=== PATIENT | female | born 1980 | race Caucasian/White ===

== ENCOUNTER 2020-07-12 17:05 | Emergency (ER) | payer OTHER, SELFPAY ==
[2020-07-12 17:06] VITALS: BP 121/89; PULSE 76; RESP 19; TEMP 36.9; O2SAT 99; BMI 49.9
--- NOTE | 2020-07-12 17:25 | HMH.EDUTC ---
[facility] [place] Clinical Impression: Encounter for laboratory testing for COVID-19 virus, Nasal congestion Sinusitis Qualifiers: Sinusitis location: unspecified location Chronicity: unspecified Qualified Code(s): J32.9 - Chronic sinusitis, unspecified Disposition: Home, Self-Care Condition on Discharge: Good Instructions: Sinusitis, DI for Sinusitis, DI for COVID-19 (Suspected or Confirmed ), Coronavirus Disease 2019, Preventing the Spread of Coronavirus Discharge Instructions Additional Instructions: *Monitor Temp, Over the counter Motrin or Tylenol as directed/as needed Tylenol every 4 hours and Motrin every 6 hours (as long as your family doctor has told you that you can take it) for fever or pain. and straight to ER if unable to lower temp less than 101.0 after medication given *Warm salt water gargles may help to soothe the throat *Throat Lozenges *Warm fluids like tea with honey may help to soothe the throat *Sleep elevated *Humidifier/Vaporizer Follow up IMMEDIATELY for new or worsening symptoms or no Noticeable improvement over the next 48-72 hours. 911 for difficulty breathing or swallowing You were tested for today for COVID19 your test result should be back in the next 24-48 hours, you may call to the [facility] to see if your test results are back in the next 48 hours [phone] [facility] hours are 9am-9pm You was given a handout with instructions for Self Quarantine and Self isolation for while you wait on test results and what to do if they are positive If you are positive the Health Dept will be contacting you also Prescriptions: Azithromycin [Z-Brian 250mg Tab] 250 mg PO DIRECTED #6 tab Transmission Status: Pending to [facility] Referrals: Madeleine Tan APRN [Primary Care Provider] - As needed Time of Disposition: 17:32 Medical Decision Making - Natan Inquiry Pt receiving controlled substance: No Natan was queried for this patient: No Vital Signs: 07/12/20 17:06 Temperature 97.9 F Temperature Source Oral Pulse Rate [Right] 0 L Respiratory Rate 16 Blood Pressure [Right Arm] 00/00 L 02 Sat by Pulse Oximetry 99 Orders (Tests/Meds): ORDERS Category Date Time Status Covid-19 Nasal PCR Sendout P&C Stat Lab 07/12/20 17:16 Ordered [facility] - General Stated complaint: Covid 19 test Time Seen by Provider: 07/12/20 17:25 Description of Symptoms (Recalled from Triage Doc. by RN): pt request COVID test pt c/o sinus pressure HEENT Symptoms (Recalled from RN notes): Yes Resp Symptoms (Recalled from RN notes): No Skin Symptoms (Recalled from RN notes): No MS Symptoms (Recalled from RN notes): No Functional Status (Recalled from RN notes): wnl - History of Present Illness Provider Complaint: Patient state that her is currently positive for COVID State that she has been having sinus congestion and pressure that has got worse over the last few days States that she was concerned that she may have COVID states that she come in today to get checked - Related Data Previous Rx's Medication Instructions Recorded azithromycin 250 mg tablet See Rx Instructions PO .COMPLEX #6 07/04/19 tab benzonatate 100 mg capsule 100 mg PO TID PRN #14 cap 07/04/19 prednisone 20 mg tablet 20 mg PO BID 5 Days #10 tab 07/04/19 Azithromycin [Z-Brian 250mg Tab] 250 mg PO DIRECTED #6 tab 07/12/20 Allergies Allergy/AdvReac Type Severity Reaction Status Date / Time Sulfa (Sulfonamide Allergy Verified 07/12/20 17:19 Antibiotics) - Worker's Comp Is this a Worker's Comp case?: No Is this an [facility] Worker's Comp?: No Is this a [facility] Worker's Comp?: No [facility] History - Hepatitis A Screen Drug use history?: No High risk sexual behaviors?: No History of sexually transmitted infection?: No Currently employed?: No Childcare worker?: No Do you have indoor plumbing?: Yes Do you have electricity?: Yes Attestation statement:: This patient has been screened for Hepatitis A risk
[2020-07-12 17:33] VITALS: BP 121/89; PULSE 76; RESP 19; TEMP 36.9; O2SAT 99
[2020-07-14 08:50] LABS: Covid-19 Nasal PCR Sendout P&C POSITIVE
--- NOTE | 2020-07-14 09:30 | PC.NURSE ---
patient notified of positive covid test
== END 2020-07-12 17:36 | disposition home or self-care (01) ==
PROVIDERS: Emergency Provider Nurse Practitioner; PCP Nurse Practitioner
DX: U07.1 COVID-19 (principal); J32.9 Chronic sinusitis, unspecified; J45.909 Unspecified asthma, uncomplicated
CPT/HCPCS: 99202; G0463; U0004

== ENCOUNTER → 2022-06-20 10:00 | Outpatient (CLI) | payer OTHER, SELFPAY ==
[2022-06-20 18:14] LABS: Adenovirus,PCR Not Detected (NotDetected); Bordetella Pertussis Not Detected (NotDetected); Chlamydophila Pneumoniae, PCR Not Detected (NotDetected); Coronavirus 19, PCR Not Detected (NotDetected); Coronavirus 229E Not Detected (NotDetected); Coronavirus NL63 Not Detected (NotDetected); Coronavirus OC43 Not Detected (NotDetected); Coronovirus HKU1,PCR Not Detected (NotDetected); Human Metapneumovirus Not Detected (NotDetected); Influenza A, PCR Not Detected (NotDetected); Influenza AH1, 2009 Not Detected (NotDetected); Influenza AH1, PCR Not Detected (NotDetected); Influenza AH3,PCR Not Detected (NotDetected); Influenza B, PCR Not Detected (NotDetected); Mycoplasma Pneumoniae, PCR Not Detected (NotDetected); Parainfluenza 1, PCR Not Detected (NotDetected); Parainfluenza 2, PCR Not Detected (NotDetected); Parainfluenza 3, PCR Not Detected (NotDetected); Parainfluenza 4, PCR Not Detected (NotDetected); Respiratory Syncytial Virus Not Detected (NotDetected); Rhinovirus/Enterovirus Not Detected (NotDetected)
== END ==
LOC: LAB.DROPOF 06-21 09:25
PROVIDERS: PCP Nurse Practitioner; Visit Provider Nurse Practitioner
DX: Z20.822 Contact with and (suspected) exposure to COVID-19 (principal); J32.9 Chronic sinusitis, unspecified; R09.81 Nasal congestion
CPT/HCPCS: 87581; 87632; 87798; C9803; U0003; U0005

== ENCOUNTER → 2022-11-18 13:52 | Outpatient (CLI) | payer OTHER, SELFPAY ==
[2022-11-18 19:09] LABS: Microalbumin/Creatinine Ratio 11.4
[2022-11-18 19:11] LABS: Basophils % 0.4 % (0.1-2.0); Eosinophils # 0.2 K/mm3 (0.0-0.4); Eosinophils % 2.9 % (0.1-12.0); Hematocrit 40.2 % (37.0-47.0); Lymphocytes # 1.8 K/mm3 (0.7-4.5); Lymphocytes % 25.4 % (10-50); Mean Corpuscular HGB Conc 32.3 g/dL (31.8-35.4); Mean Corpuscular Hemoglobin 28.4 pg (27.0-31.2); Mean Corpuscular Volume 88.1 fl (81-99); Mean Platelet Volume 10.1 fl (7.4-10.4); Monocytes # 0.4 K/mm3 (0.1-1.0); Monocytes % 5.9 % (1.7-9.3); Neutrophils # 4.5 K/mm3 (1.8-7.8); Neutrophils % 65.5 % (37.0-80.0); Platelet Count 244 K/mm3 (142-424); Red Blood Count 4.56 M/mm3 (4.20-5.40); Red Cell Distribution Width 14.1 % (11.5-17.5); White Blood Count 6.9 K/mm3 (4.8-10.8)
[2022-11-18 19:12] LABS: Creatinine,Urine Random 144 mg/dL (Not Estab.)
[2022-11-18 19:24] LABS: Alanine Aminotransferase 25 U/L (12-78); Albumin Level 3.8 g/dl (3.5-5.0); Albumin/Globulin Ratio 1.4 (1.1-1.8); Alkaline Phosphatase 62 U/L (38-126); Anion Gap 18.3 mEq/L (5-15); Aspartate Amino Transferase 30 U/L (14-36); Bilirubin,Total 0.3 mg/dl (0.2-1.3); Blood Urea Nitrogen 16 mg/dl (7-17); Carbon Dioxide 27 mmol/L (22.0-30.0); Chloride 99 mmol/L (98-107); Chol/HDL Ratio 3.8 (1-3.5); Cholesterol 170 mg/dl (140-200); Estimated Glomerular Filt Rate 110 ml/min (>60); GFR (African American) 133 ML/MIN (>60); Globulin 2.8 g/dL (1.3-3.2); Glucose 115 mg/dl (74-100); HDL Cholesterol 45 mg/dl (40-60); Potassium 4.3 mmoL/L (3.5-5.1); Sodium 140 mmol/L (136-145); Total Protein,Serum 6.6 g/dl (6.3-8.2); Triglycerides 119 mg/dl (30-150); VLDL Cholesterol 24 mg/dL (0-40)
[2022-11-18 19:35] LABS: Direct LDL Cholesterol 113.86 mg/dL (100-129)
[2022-11-18 19:38] LABS: Hemoglobin A1C 6.2 % (4.0-6.0)
[2022-11-18 19:42] LABS: 25-OH Vitamin D, Total 18.9 ng/mL (30-100)
[2022-11-18 19:54] LABS: Thyroid Stimulating Hormone 1.83 uIU/mL (0.465-4.68)
[2022-11-18 20:12] LABS: Vitamin B12 208 pg/mL (239-931)
== END ==
PROVIDERS: PCP Nurse Practitioner; Visit Provider Nurse Practitioner
DX: I10 Essential (primary) hypertension (principal); E53.8 Deficiency of other specified B group vitamins; E55.9 Vitamin D deficiency, unspecified; E78.5 Hyperlipidemia, unspecified; R60.0 Localized edema; R73.01 Impaired fasting glucose
CPT/HCPCS: 80053; 80061; 82043; 82306; 82570; 82607; 83036; 84443; 85025

== ENCOUNTER → 2022-12-18 10:50 | Outpatient (CLI) | payer OTHER, SELFPAY ==
[2022-12-18 19:48] LABS: Chloride 101 mmol/L (98-107); Potassium 5.2 mmoL/L (3.5-5.1); Sodium 138 mmol/L (136-145)
[2022-12-18 19:51] LABS: Anion Gap 17.2 mEq/L (5-15); Blood Urea Nitrogen 20 mg/dl (7-17); Calcium 9.3 mg/dl (8.4-10.2); Carbon Dioxide 25 mmol/L (22.0-30.0); Estimated Glomerular Filt Rate 69 ml/min (>60); GFR (African American) 83 ML/MIN (>60); Glucose 86 mg/dl (74-100)
== END ==
PROVIDERS: PCP Nurse Practitioner; Visit Provider Nurse Practitioner
DX: R73.01 Impaired fasting glucose (principal)
CPT/HCPCS: 80048

== ENCOUNTER → 2023-02-12 21:47 | Outpatient (CLI) | payer BC, SELFPAY ==
[2023-02-12 19:05] LABS: Hemoglobin A1C 5.8 % (4.0-6.0)
[2023-02-12 19:06] LABS: Alanine Aminotransferase 20 U/L (12-78); Albumin Level 3.8 g/dl (3.5-5.0); Albumin/Globulin Ratio 1.3 (1.1-1.8); Alkaline Phosphatase 57 U/L (38-126); Anion Gap 11.2 mEq/L (5-15); Aspartate Amino Transferase 22 U/L (14-36); Bilirubin,Total 0.3 mg/dl (0.2-1.3); Blood Urea Nitrogen 13 mg/dl (7-17); Calcium 8.8 mg/dl (8.4-10.2); Carbon Dioxide 26 mmol/L (22.0-30.0); Chloride 105 mmol/L (98-107); Chol/HDL Ratio 4.4 (1-3.5); Cholesterol 173 mg/dl (140-200); Estimated Glomerular Filt Rate 79 ml/min (>60); GFR (African American) 95 ML/MIN (>60); Globulin 2.9 g/dL (1.3-3.2); Glucose 87 mg/dl (74-100); HDL Cholesterol 39 mg/dl (40-60); Potassium 4.2 mmoL/L (3.5-5.1); Sodium 138 mmol/L (136-145); Total Protein,Serum 6.7 g/dl (6.3-8.2); Triglycerides 70 mg/dl (30-150); VLDL Cholesterol 14 mg/dL (0-40)
[2023-02-12 19:17] LABS: Direct LDL Cholesterol 108.59 mg/dL (100-129)
[2023-02-12 19:23] LABS: 25-OH Vitamin D, Total 29.1 ng/mL (30-100)
[2023-02-12 19:54] LABS: Vitamin B12 798 pg/mL (239-931)
== END ==
PROVIDERS: PCP Nurse Practitioner; Visit Provider Nurse Practitioner
DX: I10 Essential (primary) hypertension (principal); R73.01 Impaired fasting glucose; E78.5 Hyperlipidemia, unspecified; E55.9 Vitamin D deficiency, unspecified; E53.8 Deficiency of other specified B group vitamins; E66.9 Obesity, unspecified; Z68.42 Body mass index [BMI] 45.0-49.9, adult
CPT/HCPCS: 80053; 80061; 82306; 82607; 83036

== ENCOUNTER → 2023-05-28 08:32 | Outpatient (CLI) | payer BC, SELFPAY ==
[2023-05-28 19:34] LABS: Hemoglobin A1C 5.3 % (4.0-6.0)
[2023-05-28 19:41] LABS: 25-OH Vitamin D, Total 30.7 ng/mL (30-100)
[2023-05-28 20:14] LABS: Vitamin B12 369 pg/mL (239-931)
[2023-05-28 20:30] LABS: Chloride 103 mmol/L (98-107); Potassium 3.8 mmoL/L (3.5-5.1); Sodium 137 mmol/L (136-145)
[2023-05-28 20:32] LABS: Blood Urea Nitrogen 12 mg/dl (7-17); Estimated Glomerular Filt Rate 79 ml/min (>60); GFR (African American) 95 ML/MIN (>60)
[2023-05-28 20:33] LABS: Alanine Aminotransferase 68 U/L (12-78); Albumin Level 3.8 g/dl (3.5-5.0); Albumin/Globulin Ratio 1.4 (1.1-1.8); Alkaline Phosphatase 73 U/L (38-126); Anion Gap 10.8 mEq/L (5-15); Aspartate Amino Transferase 52 U/L (14-36); Bilirubin,Total 0.3 mg/dl (0.2-1.3); Calcium 8.8 mg/dl (8.4-10.2); Carbon Dioxide 27 mmol/L (22.0-30.0); Globulin 2.8 g/dL (1.3-3.2); Glucose 102 mg/dl (74-100); Total Protein,Serum 6.6 g/dl (6.3-8.2)
== END ==
PROVIDERS: PCP Nurse Practitioner; Visit Provider Nurse Practitioner
DX: I10 Essential (primary) hypertension (principal); E53.8 Deficiency of other specified B group vitamins; E55.9 Vitamin D deficiency, unspecified; E66.9 Obesity, unspecified; R73.01 Impaired fasting glucose; Z68.42 Body mass index [BMI] 45.0-49.9, adult
CPT/HCPCS: 80053; 82306; 82607; 83036

== ENCOUNTER 2024-07-08 18:56 | Outpatient (CLI) | payer BC, SELFPAY | END 2024-07-08 23:59 | disposition home or self-care (01) | LOC: LAB.DROPOF 18:57 | PROVIDERS: PCP Nurse Practitioner; Visit Provider Nurse Practitioner | DX: Z02.9 Encounter for administrative examinations, unspecified (principal) ==

== ENCOUNTER 2024-07-08 19:27 | Outpatient (CLI) | payer BC, SELFPAY ==
[2024-07-08 19:52] LABS: Basophils % 0.4 % (0.1-2.0); Eosinophils # 0.2 K/mm3 (0.0-0.4); Eosinophils % 2.7 % (0.1-12.0); Hematocrit 40.3 % (37.0-47.0); Hemoglobin 12.5 g/dL (12.2-16.2); Lymphocytes # 1.8 K/mm3 (0.7-4.5); Lymphocytes % 22.4 % (10-50); Mean Corpuscular Hemoglobin 28.5 pg (27.0-31.2); Mean Platelet Volume 11.2 fl (7.4-10.4); Monocytes # 0.6 K/mm3 (0.1-1.0); Monocytes % 6.9 % (1.7-9.3); Neutrophils # 5.4 K/mm3 (1.8-7.8); Neutrophils % 67.2 % (37.0-80.0); Platelet Count 255 K/mm3 (142-424); Red Blood Count 4.38 M/mm3 (4.20-5.40); Red Cell Distribution Width 13.2 % (11.5-17.5); White Blood Count 8.1 K/mm3 (4.8-10.8)
[2024-07-08 20:19] LABS: Creatinine,Urine Random 79 mg/dL (Not Estab.)
[2024-07-08 20:25] LABS: Hemoglobin A1C 6.1 % (4.0-6.0); Microalbumin/Creatinine Ratio 17.5
[2024-07-08 20:51] LABS: Alanine Aminotransferase 30 U/L (12-78); Albumin Level 3.6 g/dl (3.5-5.0); Albumin/Globulin Ratio 1.4 (1.1-1.8); Alkaline Phosphatase 72 U/L (38-126); Anion Gap 10.3 mEq/L (5-15); Aspartate Amino Transferase 34 U/L (14-36); Bilirubin,Total 0.1 mg/dl (0.2-1.3); Blood Urea Nitrogen 21 mg/dl (7-17); Calcium 9.2 mg/dl (8.4-10.2); Carbon Dioxide 25 mmol/L (22.0-30.0); Chloride 104 mmol/L (98-107); Cholesterol 194 mg/dl (140-200); Estimated Glomerular Filt Rate 78 ml/min (>60); GFR (African American) 95 ML/MIN (>60); Globulin 2.5 g/dL (1.3-3.2); Glucose 112 mg/dl (74-100); HDL Cholesterol 49 mg/dl (40-60); Potassium 4.3 mmoL/L (3.5-5.1); Sodium 135 mmol/L (136-145); Total Protein,Serum 6.1 g/dl (6.3-8.2); Triglycerides 131 mg/dl (30-150); VLDL Cholesterol 26 mg/dL (0-40)
[2024-07-08 21:02] LABS: Direct LDL Cholesterol 135.93 mg/dL (100-129)
[2024-07-08 21:06] LABS: 25-OH Vitamin D, Total 24.1 ng/mL (30-100)
[2024-07-08 21:20] LABS: Thyroid Stimulating Hormone 2.84 uIU/mL (0.465-4.68)
[2024-07-08 21:39] LABS: Vitamin B12 265 pg/mL (239-931)
[2024-07-08 21:45] LABS: HIV Combo NEGATIVE (Negative)
[2024-07-08 21:53] LABS: Hepatitis C Ab Qual. W/ RFX NEGATIVE (Negative)
== END 2024-07-08 23:59 | disposition home or self-care (01) ==
LOC: LAB 19:30
PROVIDERS: PCP Nurse Practitioner; Visit Provider Nurse Practitioner
DX: I10 Essential (primary) hypertension (principal); R73.01 Impaired fasting glucose; E78.5 Hyperlipidemia, unspecified; E53.8 Deficiency of other specified B group vitamins; E55.9 Vitamin D deficiency, unspecified; E66.9 Obesity, unspecified; Z11.59 Encounter for screening for other viral diseases
CPT/HCPCS: 80053; 80061; 82043; 82306; 82570; 82607; 83036; 84443; 85025; 86803; 87389

== ENCOUNTER 2024-12-06 11:29 | Outpatient (CLI) | payer BC, SELFPAY ==
[2024-12-06 19:20] LABS: Albumin Level 3.8 g/dl (3.5-5.0); Albumin/Globulin Ratio 1.4 (1.1-1.8); Carbon Dioxide 26 mmol/L (22.0-30.0); Globulin 2.8 g/dL (1.3-3.2); Hemoglobin A1C 5.3 % (4.0-6.0); Total Protein,Serum 6.6 g/dl (6.3-8.2)
[2024-12-06 19:52] LABS: Thyroid Stimulating Hormone 1.69 uIU/mL (0.465-4.68)
[2024-12-06 20:05] LABS: Alanine Aminotransferase 19 U/L (12-78); Alkaline Phosphatase 64 U/L (38-126); Anion Gap 8.6 mEq/L (5-15); Aspartate Amino Transferase 25 U/L (14-36); Bilirubin,Total 0.5 mg/dl (0.2-1.3); Calcium 9.2 mg/dl (8.4-10.2); Chloride 106 mmol/L (98-107); Chol/HDL Ratio 4.3 (1-3.5); Cholesterol 202 mg/dl (140-200); Glucose 97 mg/dl (74-100); HDL Cholesterol 47 mg/dl (40-60); Potassium 4.6 mmoL/L (3.5-5.1); Sodium 136 mmol/L (136-145); Triglycerides 76 mg/dl (30-150); VLDL Cholesterol 15 mg/dL (0-40)
[2024-12-06 20:16] LABS: Direct LDL Cholesterol 129.54 mg/dL (100-129)
[2024-12-06 20:28] LABS: Blood Urea Nitrogen 14 mg/dl (7-17); Estimated Glomerular Filt Rate 91 ml/min (>60); GFR (African American) 110 ML/MIN (>60)
--- OUTSIDE RECORDS SUMMARY | 2024-12-07 15:24 | XMS_ITS | Clinical Summary ---
Author Organization [facility] Address [address] [place] [address] Care Team Providers Care Ticket Maker Name Role Phone None, None Primary Care Provider Heidi Mcdaniels MD Unavailable [phone] Allergies Active Allergy Reactions Criticality Noted Date Comments Sulfa (Sulfonamide Antibiotics) 08/28 Medications Vit-Iron Fumarate-FA 27-1 mg PO Tab Take 1 Tab by mouth daily. Active oxycodone-acetam inophen (PERCOCET) 5-325 mg PO per tablet Take 1 Tab by mouth every 4 hours as needed for Pain. 30 Tab 0 09/13/2011 Active norethindrone (MICRONOR) 0.35 mg PO Tab Take 1 Tab by mouth daily. Start in 3 weeks 28 Tab 12 09/13/2011 Active Active Problems Problem Noted Date Diagnosed Date H/O: section 09/10/2011 state, incidental 09/10/2011 Immunizations Immunization Administration Dates Next Due Influenza 09/10/2011 Tdap 09/11/2011 Social History Tobacco Use Types Packs/Day Years Used Date Smoking Tobacco: Never Alcohol Use Standard Drinks/Week Comments No 0 (1 standard drink = 0.6 oz pur e alcohol) Comments Unknown Sex and Gender Information Value Date Recorded Sex Assigned at Not on file Legal Sex Female 7:15 PM EST Gender Identity Not on file Sexual Orientation Not on file Last Filed Vital Signs Vital Sign Reading Time Taken Comments Blood Pressure 124/82 09/13/2011 9:00 AM EDT Pulse 67 09/13/2011 9:00 AM EDT Temperature 36.3 C (97.3 F) 09/13/2011 9:00 AM EDT Respiratory Rate 20 09/13/2011 9:00 AM EDT Oxygen Saturation 97% 09/12/2011 5:00 PM EDT Inhaled Oxygen Concentration - - Weight 120.2 kg (265 lb) 09/10/2011 7:22 AM EDT Height 165.1 cm (5' 5 ) 09/10/2011 7:22 AM EDT Body Mass Index 44.1 09/10/2011 7:22 AM EDT Plan of Treatment Not on file Care Teams Ticket Maker Relationship Specialty Start Date End Date None, None [address] [place] [address] PCP - General 09/09/11 Heidi Ramirez MD [address] [facility] [address] [place], [place] [address] Covering Provider Obstetrics & Gynecology 07/07/22
--- OUTSIDE RECORDS SUMMARY | 2024-12-07 15:24 | XMS_ITS | Clinical Summary ---
Author Organization [facility] Address [address] [place] [address] Phone Care Team Providers Care Content Creation Manager Name Role Phone Unavailable Primary Care Provider Unavailabl e Allergies Active Allergy Reactions Criticality Noted Date Comments Sulfa (Sulfonamide Antibiotics) 01/29 Medications lisinopriL-hydro chlorothiazide (PRINZIDE;ZESTOR ETIC) 10-12.5 mg Oral Tablet Take 1 Tablet by mouth daily. 03/12/2023 Active metFORMIN (GLUCOPHAGE XR) 500 mg Oral ER 24 hr tablet Take 500 mg by mouth daily. 03/12/2023 Active WEGOVY 2.4 mg/0.75 mL SubQ Pen Injector INJECT 2.4 MG (0.75 ML) UNDER THE SKIN ONCE WEEKLY. 03/05/2023 Active Active Problems No known active problems Surgical History Surgery Date Site/Laterality Comments SECTION ANKLE SURGERY 06/30/2006 - 06/29/2007 broke both bones in ankle Family History Medical History Relation Name Comments Cancer Father pancreatic Diabetes Father Hypertension Father Stroke Father Cancer Maternal Grandfather liver Defects Mother whole in heart Relation Name Status Comments Father Alive Maternal Grandfather Mother Alive Sister Alive Social History Tobacco Use Types Packs/Day Years Used Date Smoking Tobacco: Never Smokeless Tobacco: Never Tobacco Cessation:Counseling Given: Not Answered Alcohol Use Standard Drinks/Week Comments Yes 0 (1 standard drink = 0.6 oz pur e alcohol) occ, socially Sexually Active Control Partners Comments Yes Comments No Sex and Gender Information Value Date Recorded Sex Assigned at Not on file Legal Sex Female 1:28 PM EDT Gender Identity Not on file Sexual Orientation Not on file Obstetrics History Para Term AB IAB SAB Ectopic Multiple Livin g Live Births 3 2 1 1 Date Outcome GA Total Labor Labor/2nd/3rd Weight Sex Type Anes PTL Wilma A1 A5 Name Clin Para Para SAB Last Filed Vital Signs Vital Sign Reading Time Taken Comments Blood Pressure 128/88 04/07/2023 10:18 AM EDT Pulse 103 02/08/2018 7:51 PM EDT Temperature 39 C (102.2 F) 02/08/2018 7:51 PM EDT Respiratory Rate 18 02/08/2018 7:51 PM EDT Oxygen Saturation 97% 02/08/2018 7:51 PM EDT Inhaled Oxygen Concentration - - Weight 122.5 kg (270 lb) 04/07/2023 10:18 AM EDT Height 165.1 cm (5' 5 ) 04/07/2023 10:18 AM EDT Body Mass Index 44.93 04/07/2023 10:18 AM EDT Plan of Treatment Health Maintenance Due Date Last Done Comments Annual Wellness Exam 1983 Hepatitis B Vaccine (1 of 3 - 19+ 3-dose series) 1999 HPV/Pap Cotest 2010 COVID-19 Vaccine ( season) 2024 07/09/2021, 10/30/2020, 10/02/2020 Influenza Vaccine (Season Ended) 2025 09/10/2011 Breast Cancer Screening 12/24/2025 12/25/19 24, 06/27/2023, 12/25/2022, Additional history exists Cervical Cancer Screening 04/07/2026 Pap Smear 04/07/2026 04/07/2023, 02/18/2017 DTaP/TDaP/Td (8 - Td or Tdap) 01/09/2028 01/08/2018, 09/11/2011, 12/16/1995, Additional history exists Meningococcal B Vaccine Aged Out No l onger eligible based on patient's age to complete this topic Pneumococcal Vaccine 0-49 Aged Out No longer eligible based on patient's age to complete this topic Procedures Procedure Name Priority Date/Time Associated Diagnosis Comments MM MAMMO DIGITAL AMPARO DIAGN BILAT Routine 12/25/2023 8:19 AM EDT 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 Ultrasound examination will be performed on the same date and reported separately. ~ DISCLAIMER * Any patient with a palpable abnormality, unexplained by breast imaging, should be managed on clinical basis by the attending physician. * Breast imaging has a false negative rate of 15%. * The patient was notified by mail of the results of this examination. *The patient's information was entered into a reminder system with a target due date for the next mammogram, in accordance with the [employer] and the Society of Breast Imaging recommendations. Narrative 12/25/2023 9:36 AM EDT Procedure:MM MAMMO DIGITAL AMPARO DIAGN BILAT ~ Reason for exam: follow-up at short interval from prior study. R92.8-Other abnormal and inconclusive findings on diagnostic imaging of [id number] ~ MM MAMMO DIGITAL AMPARO DIAGN BILAT Bilateral CC and MLO view(s) were taken. Technologist: Maribel Peters, RT There are scattered fibroglandular densities. Prior study comparison: Compared with prior studies, the most recent being 06/27/23, 12/25/22. There are stable well-circumscribed nodular densities measuring approximately 1 cm at 5:00 and 6:00 position which have previously been shown to be simple cysts. ~ There is no new mass, calcification, or distortion ~ Procedure Note James Berrios MD - 12/25/2023 Procedure:MM MAMMO DIGITAL AMPARO DIAGN BILAT ~ Reason for exam: follow-up at short interval from prior study. R92.8-Other abnormal and inconclusive findings on diagnostic imaging of [id number]-MQF-82-CM ~ MM MAMMO DIGITAL AMPARO DIAGN BILAT Bilateral CC and MLO view(s) were taken. Technologist: Maribel Peters, RT There are scattered fibroglandular densities. Prior study comparison: Compared with prior studies, the most recentbeing 06/27/23, 12/25/22. There are stable well-circumscribed nodular densities measuring approximately 1 cm at 5:00 and 6:00 position which have previously been shown to be simple cysts. ~ There is no new mass, calcification, or distortion ~ IMPRESSION: Incomplete-need additional imaging evaluation (GYU-Cadutrhv-4) ~ RECOMMENDATION: Ultrasound of the left breast. Ultrasound examination will be performed on the same date and reported separately. ~ DISCLAIMER * Any patient with a palpable abnormality, unexplained by breast imaging, should be managed on clinical basis by the attending physician. * Breast imaging has a false negative rate of 15%. * The patient was notified by mail of the results of this examination. *The patient's information was entered into a reminder system with atarget due date for the next mammogram, in accordance with the [employer] and the Society of Breast Imaging recommendations. Madeleine Tan BUSINESS PROJECT MANAGER IM MAMMOGRAPHY ORDERABLES Fin al Result * SED SPECIAL EDUCATION TEACHER CYTOLOGY REQUEST (PAP ONLY) (04/07/2023 10:47 AM EDT) CASE REPORT Gynecologic Cytology Report Case: [id number] Authorizing Provider: Panchito Smith MD Collected: 04/07/2023 1047 Ordering Location: [facility] Received: 04/07/2023 1047 First Screen: Cookie Garzon CT Specimen: LIQUID-BASED PAP - CERVICAL/ENDOCERV ICAL, Cervix, Endocervical 04/10/2023 2:32 PM EDT [facility] LABORATORY PAP FINAL DIAGNOSIS Negative for intraepithelial lesion or malignancy 04/10/2023 2:32 PM EDT [facility] at 1432 EDT MICROSCOPIC DESCRIPTION Microscopic examination is performed and the findings corroborate the diagnosis. 04/10/2023 2:32 PM EDT [facility] PAP SMEAR ADEQUACY Satisfactory for evaluation 04/10/2023 2:[address] [facility] ENDOCERVICAL T-ZONE Transformation zone present 04/10/2023 2:[address] [facility] EMBEDDED IMAGES 3 2:[address] [facility] PAP DISCLAIMER The Pap Smear is a screening test that aids in the detection of cervical cancer and cancer precursors. Both false positive and false negative results can occur. The test should be used at regular intervals, and positive results should be confirmed before definitive therapy. Processed using the Weaver LabsPrep Dye Padder Operator Automated cytology screening device (MeterHero). 04/10/2023 2:32 PM EDT [facility]OR[facility]ORY PAP OTHER FINDINGS Many acute inflammatory cells noted. 04/10/2023 2:[address] [facility] Thin Prep ENDOCERVICAL STRUCTURE / Unknown 04/07/2023 10:47 AM EDT 04/07/2023 10:47 AM EDT Panchito Smith MD CYTOLOGY ORDERABLES Final Re sult [facility] [address] [place] [address] from Last 3 Months or Most Recently Relevant to Health Maintenance Insurance DEB PPO
== END 2024-12-06 23:59 | disposition home or self-care (01) ==
LOC: LAB.DROPOF 12-07 15:18
PROVIDERS: PCP Nurse Practitioner; Visit Provider Nurse Practitioner
DX: E78.5 Hyperlipidemia, unspecified (principal); E66.9 Obesity, unspecified; I10 Essential (primary) hypertension; R73.01 Impaired fasting glucose

== ENCOUNTER 2025-01-06 15:20 | Outpatient (CLI) | payer BC, SELFPAY ==
--- NOTE | 2025-01-06 15:15 | CA_ITS ---
FINAL REPORT TECHNIQUE: Multiple transverse and longitudinal images were performed of the right femoral-popliteal deep venous system with augmentation and compression maneuvers. CLINICAL HISTORY: right knee pain with bruise FINDINGS: Right lower extremity duplex ultrasound demonstrates normal flow in the deep venous system. There is no abnormal echogenicity to suggest thrombus. There is normal compression and augmentation. IMPRESSION: No evidence of right DVT. Reviewed, Interpreted and Dictated by Sunny Echeverria MD Transcribed by Dali Badillo Authenticated and . [facility]
--- OUTSIDE RECORDS SUMMARY | 2025-01-06 15:22 | XMS_ITS | Clinical Summary ---
Author Organization [facility] Address [address] [place] [address] Care Team Providers Care Control Inspector Name Role Phone None, None Primary Care Provider Heidi Mcdaniels MD Unavailable Allergies Active Allergy Reactions Criticality Noted Date [...] of Treatment Not on file Care Teams Control Inspector Relationship Specialty Start Date End Date None, None [address] [place] [address] PCP - General 09/09/11 Heidi Ramirez MD [address] [facility] [address] [place], [place] [address] Covering Provider Obstetrics & Gynecology 07/07/22
--- OUTSIDE RECORDS SUMMARY | 2025-01-06 15:23 | XMS_ITS | Clinical Summary ---
Author Organization [facility] Address [address] [place] [address] Phone Care Team Providers Care Criminal Researcher Name Role Phone Unavailable Primary Care Provider [...] season) 2024 07/09/2021, 10/30/2020, 10/02/2020 Influenza Vaccine (#1) 2025 09/10/2011 Breast Cancer Screening 12/24/2025 12/25/19 [...] Routine 12/25/2023 8:19 AM EDT Abnormal mammogram RETAIL STOCKER CYTOLOGY REQUEST (PAP ONLY) Routine 04/07/2023 10:47 AM EDT Well woman exam with routine gynecological exam from Last 3 Months or Most Recently Relevant to Health Maintenance Results * MM MAMMO DIGITAL AMPARO DIAGN BILAT (12/25/2023 8:19 AM EDT) Anatomical Region Laterality Modality Breast Bilateral Mammography 12/25/2023 9:36 AM EDT Impressions 12/25/2023 9:36 AM EDT Incomplete-need additional imaging evaluation (WCY-Vlblwama-2) ~ RECOMMENDATION: Ultrasound of the left breast. [...] the next mammogram, in accordance with the [employer] and the Society of Breast Imaging recommendations. Narrative 12/25/2023 9:36 AM EDT Procedure:MM MAMMO DIGITAL AMPARO DIAGN BILAT ~ Reason for exam: follow-up at short interval from prior study. R92.8-Other abnormal and inconclusive findings on diagnostic imaging of [id number]-FPS-23-CM ~ MM MAMMO DIGITAL AMPARO DIAGN BILAT [...] and inconclusive findings on diagnostic imaging of [id number]-AGN-79-CM ~ MM MAMMO DIGITAL AMPARO DIAGN BILAT [...] distortion ~ IMPRESSION: Incomplete-need additional imaging evaluation (DCV-Nykotmdn-1) ~ RECOMMENDATION: Ultrasound of the left breast. [...] the next mammogram, in accordance with the [employer] and the Society of Breast Imaging recommendations. Madeleine Tan TOWER CLEANER IM MAMMOGRAPHY ORDERABLES Fin al Result * RETAIL STOCKER CYTOLOGY REQUEST (PAP ONLY) (04/07/2023 10:47 AM EDT) CASE REPORT Gynecologic Cytology Report Case: [id number] Authorizing Provider: Panchito Smith MD Collected: 04/07/2023 1047 Ordering Location: [facility] Received: 04/07/2023 1047 First Screen: Cookie Garzon CT Specimen: LIQUID-BASED PAP - CERVICAL/ENDOCERV ICAL, Cervix, Endocervical 04/10/2023 2:32 PM EDT [facility] [employer] LABORATORY PAP FINAL DIAGNOSIS Negative for intraepithelial lesion or malignancy 04/10/2023 2:32 PM EDT [facility] at 1432 EDT MICROSCOPIC DESCRIPTION Microscopic examination is performed and the findings corroborate the diagnosis. 04/10/2023 2:32 PM EDT [facility] PAP SMEAR ADEQUACY Satisfactory for evaluation 04/10/2023 2:32 PM EDT [facility] ENDOCERVICAL T-ZONE Transformation zone present 04/10/2023 2:32 PM EDT [facility] EMBEDDED IMAGES 3 2:32 PM EDT [facility] PAP DISCLAIMER The Pap Smear is a screening test that aids in the detection of cervical cancer and cancer precursors. Both false positive and false negative results can occur. The test should be used at regular intervals, and positive results should be confirmed before definitive therapy. Processed using the [employer] MediaPrep Botany Teacher Automated cytology screening device (Givit). 04/10/2023 2:32 PM EDT [facility] LABORATORY PAP OTHER FINDINGS Many acute inflammatory cells noted. 04/10/2023 2:32 PM EDT [facility] Thin Prep ENDOCERVICAL STRUCTURE / Unknown 04/07/2023 10:47 AM EDT 04/07/2023 10:47 AM EDT Panchito Smith MD CYTOLOGY ORDERABLES Final Re sult [facility] [address] [place] [address] from Last 3 Months or Most Recently Relevant to Health Maintenance Insurance DEB PPO
--- OUTSIDE RECORDS SUMMARY | 2025-01-06 15:23 | XMS_ITS ---
Author Organization Unknown Medications Medication Instructions Effective Dates (start - stop) Status brompheniramine maleate 0.4 MG/ML / dextromethorphan hydrobromide 2 MG/ML / pseudoephedrine hydrochloride 6 MG/ML Oral Solution [id number]:00:0 0.000+00 :00 - Completed hydrochlorothiazide 12.5 MG / lisinopril 10 MG Oral Tablet [id number]:00:00.000+0 0 :00 - Completed hydrochlorothiazide 12.5 MG / lisinopril 10 MG Oral Tablet [id number]:00:00.000+0 0 :00 - Completed 24 HR metformin hydrochlorid e 500 MG Extended Release Oral Tablet [id number]:00:00.000+0 0 :00 - Completed 24 HR metformin hydrochlorid e 500 MG Extended Release Oral Tablet [id number]:00:00.000+0 0 :00 - Completed cefdinir 300 MG Oral Capsule 08-11-21:00:00.000+00 :00 - Completed 0.5 ML semaglutide 1 MG/ML Auto-Injector [Wegovy] [id number]:00:00.000+00 :00 - Completed 0.5 ML semaglutide 2 MG/ML Auto-Injector [Wegovy] [id number]:00:00.000+00 :00 - Completed Patient Care team information Name Category Status Period Participants - - Proposed period not known -
== END 2025-01-06 23:59 | disposition home or self-care (01) ==
LOC: RT 15:21
PROVIDERS: PCP Nurse Practitioner; Visit Provider Nurse Practitioner
DX: I83.811 Varicose veins of right lower extremity with pain (principal); M25.461 Effusion, right knee; S80.01XA Contusion of right knee, initial encounter
CPT/HCPCS: 93971